=== PATIENT | male | born 1965 | race Caucasian/White ===

== ENCOUNTER 2017-06-21 21:30 | Emergency (ER) | payer OTHER ==
[~2017-06-21] VITALS: Ht 190.5 cm; Wt 116.4 kg
[2017-06-21 21:40] VITALS: TEMP 36.6; Ht 190.5 cm; Wt 116.4 kg
[2017-06-21 22:27] VITALS: BP 134/79; PULSE 76; O2SAT 96
--- NOTE | 2017-06-22 05:05 | EMERGENCY ROOM VISIT NOTE ---
ED Visit Note First contact with patient: 21:58 CHIEF COMPLAINT: Tick bite HISTORY OF PRESENT ILLNESS: This 52-year-old patient presents to the emergency department with right thigh after they noticed a tick embedded []. The patient did try to remove it. It had been on for less than 4 hours. The patient's tetanus shot is up-to-date. The patient denies any rashes, fevers, chills, or lightheadedness. The patient denies joint tenderness. REVIEW OF SYSTEMS: A 6 system review of systems was completed with positives and pertinent negatives listed in the HPI. ALLERGIES: None MEDICATIONS: None PMH: Orthopedic injury SOCIAL HISTORY: No drug use PHYSICAL EXAM: Vital Signs: Reviewed Nurse's notes, vital signs stable. GENERAL : Pleasant male, in no acute distress, well-developed, well-nourished. SKIN: There is a piece of a tick embedded in the patient's right thigh. There is a small zone of inflammation and eccymosis around the spot where the tick is. The skin is otherwise clear. NEUROLOGICAL: Alert and oriented to person place and time, cooperative. Sensory and motor functions grossly intact. ED COURSE: I examined the patient. The area was cleansed and using an 18- gauge needle the rest of the tick was removed. There was no bleeding. The patient tolerated the procedure well. The area was dressed with bacitracin and a bandage. Patient was counseled on signs and symptoms of Lyme disease he verbalized understanding this. He was advised to follow-up family care or here in the ER sooner for signs of Lyme disease or worsening signs or symptoms or as needed. The patient was discharged home in good condition. DIAGNOSIS: Tick bite and removal DISCHARGE INSTRUCTIONS & TREATMENT: Watch the area for signs of infection. Keep bacitracin on it for 2 days. Follow up with family doctor if he develops symptoms of a target rash, fever, chills, lightheadedness, or joint pain. Allergies Uncoded Allergies: N (Allergy, Unknown, 04/08/02) NKA (Allergy, Unknown, 04/08/02) NKDA (Allergy, Unknown, 04/08/02) Vital Signs Date Time Temp Pulse Resp B/P (MAP) Pulse Ox O2 Delivery O2 Flow Rate FiO2 06/21/17 22:27 76 18 134/79 96 06/21/17 21:40 36.6 76 18 134/79 96 Room Air Departure Information Referrals Lamont Hale D.O. (PCP) Patient Instructions [facility]
== END 2017-06-21 22:28 | disposition home or self-care (01) ==
LOC: C.EDB 21:31 → C.EDD 22:28
DX: S70.361A Insect bite (nonvenomous), right thigh, initial encounter (principal); W57.XXXA Bitten or stung by nonvenomous insect and other nonvenomous arthropods, initial encounter